=== PATIENT | male | born 1995 | race Caucasian/White ===

== ENCOUNTER 2018-09-10 19:28 | Emergency (ER) | payer SELFPAY ==
[~2018-09-10] VITALS: Ht 172.7 cm; Wt 61.2 kg
[2018-09-10 19:41] VITALS: BP 126/59
--- NOTE | 2018-09-10 19:45 | NUR ---
PT AMBULATED TO LOBBY WITH VSS.
--- NOTE | 2018-09-10 20:28 | NUR ---
PT AMBULATED TO ER BED 8
--- NOTE | 2018-09-10 20:30 | NUR ---
22 YO M BIB SELF PRESENTS TO ED C/O 10/21 MIDDLE/LOWER BACK PAIN. PT STATES HE WAS HIKING 2 DAYS AGO AND WAS RUNNING BACKWARDS DOWN AN INCLINE AND RAN INTO A GATE FACING FORWARD. NO BRUISING OR GROSS TRAUMA NOTED AT THIS TIME. PT STATES MOVEMENT MAKES THE PAIN WORSE. PMH-- DENIES RX-- DENIES
--- NOTE | 2018-09-10 20:45 | NUR ---
PT TAKEN TO XRAY VIA WC.
--- NOTE | 2018-09-10 20:54 | NUR ---
PT RETURNED FROM RAD TO ER BED 8 VIA WHEELCHAIR
--- NOTE | 2018-09-10 21:50 | NUR ---
DR. PEPE BEDSIDE EVALUATING PT
[2018-09-10 22:05] VITALS: BP 122/61
== END 2018-09-10 22:05 | disposition home or self-care (01) ==
LOC: MED 19:28
DX: M54.5 Low back pain (principal); W01.0XXA Fall on same level from slipping, tripping and stumbling without subsequent striking against object, initial encounter; Y93.02 Activity, running; Y92.89 Other specified places as the place of occurrence of the external cause; Y99.8 Other external cause status
CPT/HCPCS: 72100; 99283

== ENCOUNTER 2018-09-17 18:59 | Emergency (ER) | payer MEDICAID ==
[~2018-09-17] VITALS: Ht 172.7 cm; Wt 62.6 kg
--- NOTE | 2018-09-17 19:07 | NUR ---
PT AMBULATED TO ER BED 4
[2018-09-17 19:13] VITALS: BP 132/80
--- NOTE | 2018-09-17 19:17 | NUR ---
PT PRESENTS TO ED WITH C/O SORE THROAT X 2 DAYS. PT WAS SEEN BY ED PROVIDER AT [facility] WITH DX.PHARYNGITIS. PAIN WORSEN TODAY, DIFFICULTY SWOLOWWING. DENIES PMH. AAO X4, GCS 15, AMBULATORY WITH STEADY GAIT. RESPIATIONS EVEN AND UNLABORED, BL LUNG CLEAR. RT TONSIL SWOLLEN, MILD ERYTHEMA. SKIN WAMR/PINK/DRY, +PMSC. VS WNL, STATED PAIN 10/10. ED PROVIDER MADE AWARE OF PT STATUS. WILL CONTINUE TO MONITOR
--- NOTE | 2018-09-17 19:27 | NUR ---
DR. PEPE BEDSIDE EVALUATING PT
[2018-09-17] MEDS ORDERED: NACL 0.9% 1,000 ML IV ONE (19:35)
--- NOTE | 2018-09-17 19:47 | NUR ---
THROAT SWAB DONE
--- NOTE | 2018-09-17 19:52 | NUR ---
Lyric williamson in [facility] - 09/17/[address] at [address] PEPE BEDSIDE EVALUATING PT
[2018-09-17 19:53] LABS: BASOPHILS # (AUTO) 0.1 K/uL (0.00-0.22); BASOPHILS % (AUTO) 0.9 % (0.0-2.0); HEMATOCRIT 39.8 % (36-52); HEMOGLOBIN 13.3 g/dL (12.0-18.0); LYMPHOCYTES # (AUTO) 0.6 K/uL (2.0-11.5); LYMPHOCYTES % (AUTO) 4.9 % (20.5-51.1); MEAN CORPUSCULAR HEMOGLOBIN 32 pg (27-31); MEAN CORPUSCULAR HGB CONC 33 g/dL (33-37); MEAN CORPUSCULAR VOLUME 95.1 fL (80-94); MONOCYTES # (AUTO) 1.3 K/uL (0.8-1.0); MONOCYTES % (AUTO) 9.8 % (1.7-9.3); NEUTROPHILS # (AUTO) 10.8 K/uL (1.8-7.7); NEUTROPHILS % (AUTO) 84.4 % (42.2-75.2); PLATELET COUNT (AUTO) 159 K/uL (140-450); RED BLOOD CELL COUNT(AUTO) 4.19 MIL/uL (4.20-6.10); RED CELL DISTRIBUTION WIDTH 12.8 % (11.6-13.7); WHITE BLOOD COUNT (AUTO) 12.9 K/uL (4.5-11.0)
[2018-09-17] MEDS ORDERED: cefTRIAXone 1,000 MG VIAL ONE (19:57)
[2018-09-17] MEDS ORDERED: KETOROLAC 30 MG/ML VIAL IM ONE (20:05)
[2018-09-17] MEDS ORDERED: DEXAMETHASONE 10 MG/ML VIAL IVP ONE (20:05)
[2018-09-17] MEDS ORDERED: KETOROLAC 15 MG/ML VIAL IVP ONE (20:10)
--- NOTE | 2018-09-17 20:22 | NUR ---
CHANGE NELSON LEVEL TO 3, PT NEED MORE THAN 3 RESORCES
[2018-09-17 20:26] LABS: ALBUMIN 4.2 g/dL (3.4-5.0); ANION GAP 13.7 (8-16); CARBON DIOXIDE 27.6 mmol/L (21-32); CREATININE 0.8 mg/dL (0.7-1.3); POTASSIUM 3.3 mmol/L (3.5-5.1); TOTAL BILIRUBIN 0.7 mg/dL (0.0-1.0)
--- NOTE | 2018-09-17 20:50 | NUR ---
PT TAKEN TO CT
--- NOTE | 2018-09-17 20:56 | NUR ---
REPORT GIVEN TO JAKE DOTSON
[2018-09-17 22:53] VITALS: BP 132/80
--- NOTE | 2018-09-17 22:53 | NUR ---
Patient discharged with v/s stable. Written and verbal after care instructions given and explained. Patient alert, oriented and verbalized understanding of instructions. Ambulatory with steady gait. All questions addressed prior to discharge. ID band removed. Patient advised to follow up with PMD. Rx of IBUPROFEN, NORCO, PENICILLIN given. Patient educated on indication of medication including possible reaction and side effects. Opportunity to ask questions provided and answered.
== END 2018-09-17 22:53 | disposition home or self-care (01) ==
LOC: MED 18:59
DX: J36 Peritonsillar abscess (principal)
CPT/HCPCS: 36415; 70491; 80053; 85025; 87081; 96365; 96375; 99284; J0696; J1100; J1885; J7030; J7060; Q9967